=== PATIENT | male | born 1965 | race Caucasian/White ===

== ENCOUNTER 2017-01-05 07:38 | Observation (INO) | payer OTHER ==
[2017-01-05 08:57] LABS: Basophils % (Auto) 0.5 % (0.0-1.8); Eosinophils % (Auto) 2.5 % (0.0-4.3); Hematocrit 39.4 % (35.5-45.6); Hemoglobin 13.3 gm/dl (11.8-15.2); Mean Corpuscular HGB Conc 34 % (32-34); Mean Corpuscular Hemoglobin 28 pg (28-32); Mean Corpuscular Volume 83 fl (84-94); Platelet Count 243 K/mm3 (140-440); Red Blood Count 4.76 M/mm3 (3.65-5.03); Red Cell Distribution Width 13.8 % (13.2-15.2); White Blood Count 7.1 K/mm3 (4.5-11.0)
[2017-01-05] MEDS ORDERED: ECOTRIN PO ONE (09:00)
[2017-01-05] MEDS ORDERED: NACL 0.9% 500 ML 500 ML IV SCH (09:00)
[2017-01-05 09:04] LABS: INR 0.98 (0.87-1.13)
[2017-01-05 09:22] LABS: Anion Gap 14 mmol/L; BUN/Creatinine Ratio 20; Blood Urea Nitrogen 18 mg/dL (9-20); Calcium 9.2 mg/dL (8.4-10.2); Carbon Dioxide 27 mmol/L (22-30); Chloride 105.2 mmol/L (98-107); Glucose 111 mg/dL (75-100); Potassium 4.7 mmol/L (3.6-5.0); Sodium 141 mmol/L (137-145)
[2017-01-05] MEDS ORDERED: VERSED ONE ×2 (10:21→13:41)
[2017-01-05] MEDS ORDERED: HEPARIN/NS 5000 UNIT/500ML(CATH LAB) 1,000 ML IR ONE (10:21)
[2017-01-05] MEDS ORDERED: SUBLIMAZE ONE ×2 (10:22→13:41)
[2017-01-05] MEDS ORDERED: CALAN ONE (10:22)
[2017-01-05] MEDS ORDERED: XYLOCAINE 2% INFILTRATI ONE ×5 (10:22→13:43)
[2017-01-05] MEDS ORDERED: NITROGLYCERIN SYRINGE 3 ML ONE ×2 (10:23→14:04)
[2017-01-05] MEDS ORDERED: SUBLIMAZE IV ONE ×3 (10:28→14:10)
[2017-01-05] MEDS ORDERED: VERSED IV ONE ×2 (10:28→13:42)
[2017-01-05] MEDS ORDERED: NITROGLYCERIN SYRINGE UD ONE ×2 (10:30→14:00)
[2017-01-05] MEDS ORDERED: HEPARIN 10,000 UNITS/10 ML IV ONE ×4 (10:30→14:12)
[2017-01-05] MEDS ORDERED: CALAN IV ONE (10:30)
[2017-01-05] MEDS ORDERED: HEPARIN 10,000 UNITS/10 ML ONE ×2 (10:34→13:41)
[2017-01-05] MEDS ORDERED: PLAVIX ONE (10:56)
[2017-01-05] MEDS ORDERED: PLAVIX PO ONE (10:58)
[2017-01-05] MEDS ORDERED: ALUM-MAG HYDROX-SIMETH 200-200-20MG/5ML ONE (11:03)
--- NOTE | 2017-01-05 13:05 | Cardiac Catherization Report ---
LEFT HEART CATHETERIZATION ORDERING PHYSICIAN: Suhail Summers MD INDICATION FOR PROCEDURE: Stable angina, abnormal treadmill stress test. PROCEDURES PERFORMED: 1. Selective left and right coronary angiography. 2. Left ventriculography. DESCRIPTION OF PROCEDURE: After obtaining written consent, the patient was draped using sterile technique. A 2% lidocaine was injected into the right wrist. A 6-Algerian vascular sheath was inserted into the right radial artery. A 6-Al[place]ian [place] catheter was used to selectively engage the left coronary artery. A 6-Algerian [place] catheter was used to selectively engage the right coronary artery. A 6-Al[place]ian [place] catheter was used to hand inject the left ventriculogram. No complications occurred during the procedure. Hemostasis was achieved at the end of the procedure using manual pressure. SPECIMEN REMOVED: None. ESTIMATED BLOOD LOSS: Minimal. FINDINGS: HEMODYNAMICS: The aortic pressure 114/79, LV end-diastolic pressure was measured at 25 mmHg. No significant gradient was noted across the left ventricular outflow tract. CARDIAC STRUCTURES: The left ventricle is normal in size and systolic function and left ventricular ejection fraction is estimated at 60% with normal wall motion. CORONARY ANATOMY: 1. This is a right dominant circulation. 2. The left main has evidence of a distal 10% lesion. 3. The LAD has evidence of 40% tubular lesion noted in the proximal segment. There is also evidence of a 70% stenosis noted in the mid LAD right at the takeoff of the second diagonal artery. There is a hazy 80% lesion noted at the ostium of the second diagonal artery. 4. The left circumflex artery has mild to moderate diffuse nonobstructive luminal irregularities. 5. The right coronary artery is a dominant vessel. There is evidence of a tubular 40% stenosis in the proximal right coronary artery. There is evidence of a 99% focal stenosis of the distal right coronary artery. There is evidence of an 80% stenosis of the posterolateral ventricular branch proximal segment. IMPRESSION: 1. Significant 2 vessel coronary artery disease. 2. Normal left ventricular size and systolic function. 3. LVEDP measured at 25 mmHg. RECOMMENDATION: Proceed with PCI to the right coronary artery with staged PCI to the mid LAD. [facility]# [id number] PERLA/LOUISE
[2017-01-05] MEDS ORDERED: HEPARIN/NS 5000 UNIT/500ML(CATH LAB) 1,500 ML IR ONE (13:39)
[2017-01-05] MEDS ORDERED: NACL 0.9% 500 ML 500 ML ONE (13:47)
[2017-01-05] MEDS ORDERED: AMBIEN PO PRN (14:39)
[2017-01-05] MEDS ORDERED: ZOFRAN IV PRN (14:39)
--- NOTE | 2017-01-05 14:44 | Event Note ---
Date: 01/05/17 Outpatient cardiac cath followed by adhoc PCI of the RCA-4.0mm DE stents. No complications. Admit overnight for post PCI obs and discharge tomorrow am. ASA/Plavix on discharge.
[2017-01-05] MEDS ORDERED: NACL 0.9% 1000 ML 1,000 ML IV SCH (15:00)
[2017-01-05] MEDS: ULTRAM PO PRN ×2 (15:52→20:02)
--- NOTE | 2017-01-05 16:14 | Cardiac Catherization Report ---
CORONARY ANGIOPLASTY REPORT REASON FOR PROCEDURE: The patient is a 51-year-old man who underwent outpatient cardiac catheterization for progressive dyspnea and angina pectoris. FINDINGS: The angiograms revealed a subtotal occlusion, greater than 99% stenosis of the distal AV groove segment of a large caliber dominant right coronary system. The lesion was located just before the right posterior descending branch. In addition, there were significant nonobstructive lesions in the proximal vessel and in the distal posterolateral branch. He was recommended for adhoc coronary angioplasty. DESCRIPTION OF THE PROCEDURE: The patient was prepped and draped in a sterile fashion after informed consent. The right femoral artery was entered using the Seldinger technique followed by placement of a 6-[place] Citizen sheath. We selected a #1 right Amplatz guiding catheter and advanced to the right coronary ostium. Preintervention angiograms were taken. We initially used a [employer] Manager 50 wire, but were unable to cross what appeared to be a likely chronic total occlusion of the vessel in the distal AV groove segment. We then exchanged for a Cross/It wire, and with this wire, we were able to successfully cross the severe stenosis. Balloon angioplasty was then performed to the occlusive lesion with a 3.0 mm balloon catheter. We then deployed a 4.0 x 18 mm drug-eluting stent, covering the entire lesional segment. Following stenting, there was an excellent angiographic result at the primary site. KRYSTIAN 3 flow was reestablished to the distal vessel. We then turned our attention to the distal AV groove lesion, where using primary stenting, a 2.5 x 14 mm drug-eluting stent was deployed successfully, with an excellent angiographic result at that site. Following that, we then turned our attention to the proximal vessel, where we deployed a 4.0 x 12 drug-eluting stent, also deploying primary stenting. There was also an excellent angiographic result at this site. At the conclusion of the procedure, there was 0% residual stenosis in the proximal vessel, distal AV groove, and the posterolateral branch sites. KRYSTIAN 3 flow was restored and there were no complications. The patient was returned to the postprocedure unit in stable condition. CONCLUSION: Successful angioplasty and stenting of the right coronary artery. Serial, 2.5-4.0 mm drug-eluting stents were deployed to proximal, distal AV groove and posterolateral branches with excellent angiographic result. JOB# [id number] CESILIA/LOUISE VILLA
[2017-01-05] MEDS: LOPRESSOR PO SCH (21:07)
[2017-01-05] MEDS: LOPID PO SCH (21:07)
[2017-01-06 06:14] VITALS: BP 111/75
[2017-01-06 06:21] LABS: Basophils % (Auto) 0.3 % (0.0-1.8); Eosinophils % (Auto) 1.5 % (0.0-4.3); Hematocrit 36.5 % (35.5-45.6); Hemoglobin 12.4 gm/dl (11.8-15.2); Mean Corpuscular HGB Conc 34 % (32-34); Mean Corpuscular Hemoglobin 28 pg (28-32); Mean Corpuscular Volume 83 fl (84-94); Platelet Count 223 K/mm3 (140-440); Red Blood Count 4.39 M/mm3 (3.65-5.03); Red Cell Distribution Width 13.8 % (13.2-15.2); White Blood Count 7.3 K/mm3 (4.5-11.0)
[2017-01-06 06:42] LABS: Creatine Kinase MB 4.1 ng/mL (0.0-4.0)
[2017-01-06 06:47] LABS: Anion Gap 17 mmol/L; BUN/Creatinine Ratio 14; Blood Urea Nitrogen 13 mg/dL (9-20); Calcium 8.5 mg/dL (8.4-10.2); Carbon Dioxide 23 mmol/L (22-30); Chloride 103.4 mmol/L (98-107); Creatine Kinase 140 units/L (55-170); Glucose 129 mg/dL (75-100); Potassium 4.4 mmol/L (3.6-5.0); Sodium 139 mmol/L (137-145)
[2017-01-06] MEDS: LOPID PO SCH (09:33)
[2017-01-06] MEDS: LOPRESSOR PO SCH (09:33)
[2017-01-06] MEDS ORDERED: PLAVIX PO SCH (10:00)
[2017-01-06] MEDS ORDERED: IMDUR PO SCH (10:00)
[2017-01-06] MEDS ORDERED: HALFPRIN EC PO SCH (10:00)
--- NOTE | 2017-01-06 10:27 | XRay Report ---
AP CHEST : 01/06/17 CLINICAL: Post PCI COMPARISON:None FINDINGS: Normal heart and pulmonary vessels. The lungs are normally expanded and clear. The bones and soft tissues are unremarkable. IMPRESSION: Normal chest.
--- NOTE | 2017-01-06 11:03 | Progress Note ---
Assessment and Plan 1. Coronary artery disease 2. Status post cardiac cath and PCI to the right coronary artery with a drug eluting stent 3. Hyperlipidemia 4. Obesity Plan. 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 Objective Vital Signs Temp Pulse Resp BP BP Pulse Ox 01/06/17 06:07 70 01/06/17 04:00 97.8 F 69 18 111/75 96 01/06/17 00:00 98.1 F 86 18 106/72 95 01/05/17 21:25 96 01/05/17 20:39 98.2 F 79 18 118/61 96 01/05/17 17:30 74 19 130/82 96 01/05/17 17:00 80 20 134/80 96 01/05/17 16:30 72 16 139/88 96 01/05/17 16:00 70 13 134/89 96 01/05/17 15:45 70 17 136/91 98 01/05/17 15:30 72 19 138/95 98 01/05/17 15:15 74 16 133/93 96 01/05/17 15:00 70 17 148/95 97 01/05/17 14:45 71 16 135/88 99 01/05/17 13:00 66 17 125/85 96 01/05/17 12:30 66 17 120/82 97 01/05/17 12:05 67 18 123/82 97 01/05/17 11:50 65 14 118/82 97 01/05/17 11:35 67 15 121/78 97 01/05/17 11:20 72 16 116/73 94 01/05/17 11:05 97.8 F 71 15 116/73 94 - Physical Examination General: Appears Well, No Apparent Distress, Other (obese) HEENT: Neck: Cardiac: Lungs: Neuro: Abdomen: /Rectal: Normal Prostate, No Masses Skin: Musculoskeletal: No Fluid Collection, No Pain, Normal Range of Motion Gait: Normal Gait Extremities: - Labs and Meds Cardiac Enzymes 01/06/17 Range/Units 05:41 CK-MB (CK-2) 4.1 H (0.0-4.0) ng/mL CBC 01/06/17 Range/Units 05:41 WBC 7.3 (4.5-11.0) K/mm3 RBC 4.39 (3.65-5.03) M/mm3 Hgb 12.4 (11.8-15.2) gm/dl Hct 36.5 (35.5-45.6) % Plt Count 223 (140-440) K/mm3 Lymph # 2.0 (1.2-5.4) K/mm3 [place] # 1.0 H (0.0-0.8) K/mm3 Eos # 0.1 (0.0-0.4) K/mm3 Baso # 0.0 (0.0-0.1) K/mm3 Comprehensive Metabolic Panel 01/06/17 Range/Units 05:41 Sodium 139 (137-145) mmol/L Potassium 4.4 (3.6-5.0) mmol/L Chloride 103.4 (98-107) mmol/L Carbon Dioxide 23 (22-30) mmol/L BUN 13 (9-20) mg/dL Creatinine 0.9 (0.8-1.5) mg/dL Glucose 129 H (75-100) mg/dL Calcium 8.5 (8.4-10.2) mg/dL
== END 2017-01-06 14:58 | disposition home or self-care (01) ==
LOC: CATHLABREC 07:38 → 4A 14:39
PROVIDERS: ADMIT Internal Medicine; ATTEND Internal Medicine
DX: I25.119 Atherosclerotic heart disease of native coronary artery with unspecified angina pectoris (principal); Z98.61 Coronary angioplasty status
CPT/HCPCS: 36415; 71010; 80048; 82550; 82553; 84484; 85025; 85347; 85610; 85730; 93005; 93010; 93458; 96374; C1725; C1760; C1769; C1874; C1887; C1894; C9600; G0378; J1644; J2250; J2405; J3010; J7030; J7040; 92928; Q9967

== ENCOUNTER 2020-03-09 11:32 | Outpatient (CLI) | payer OTHER ==
--- NOTE | 2020-03-09 13:30 | XRay Report ---
XR spine lumbosacral 2-3V INDICATION / CLINICAL INFORMATION: LOW BACK PAIN. COMPARISON: None available. FINDINGS: BONES/JOINT(S): 5 lumbar type vertebral bodies are present. Posterior vertebral alignment is preserve d. Vertebral body heights are intact. There is no evidence for fracture. Mild multilevel disc degener ative changes are present throughout the lumbar spine. There is moderate lower lumbar facet arthropat hy. PARASPINAL SOFT TISSUES:Calcifications project over the left renal shadow, likely reflecting renal ca lculi. No discrete calculus is seen along the course of either ureter. ADDITIONAL FINDINGS: None. IMPRESSION: Mild/moderate lower lumbar spondylosis, without acute osseous findings Signer Name: Ned Grant MD Signed: 03/09/2020 1:25 PM Workstation Name: [id number]
== END 2020-03-09 11:33 | disposition home or self-care (01) ==
LOC: XRAY 11:32
PROVIDERS: ATTEND Family Medicine
DX: M47.816 Spondylosis without myelopathy or radiculopathy, lumbar region (principal); N28.89 Other specified disorders of kidney and ureter
CPT/HCPCS: 72100